=== PATIENT | female | born 1995 | race African-American/Black ===

== ENCOUNTER 2023-01-06 20:02 | Emergency (ER) | payer SELFPAY ==
[2023-01-06] MEDS ORDERED: Ketorolac Tromethamine 30 MG/ML VIAL ONE (20:29)
[2023-01-06] MEDS ORDERED: Cyclobenzaprine 10 MG TAB ONE (20:30)
== END 2023-01-06 21:20 | disposition home or self-care (01) ==
LOC: CSHERS 20:02
DX: M43.6 Torticollis (principal)
CPT/HCPCS: 96372; 99283; J1885

== ENCOUNTER 2023-03-01 19:02 | Emergency (ER) | payer SELFPAY ==
[2023-03-01] MEDS ORDERED: Ketorolac Tromethamine 30 MG/ML VIAL ONE (21:45)
== END 2023-03-01 22:09 | disposition home or self-care (01) ==
LOC: CSHERS 19:02
DX: J02.9 Acute pharyngitis, unspecified (principal)
CPT/HCPCS: 96372; 99283; J1885

== ENCOUNTER 2024-03-01 13:39 | Emergency (ER) | payer OTHER ==
[2024-03-01 16:08] LABS: Bilirubin Neg (Negative); Blood, Urine Negative (Negative); Clarity Clear (Clear); Glucose, Urine (Dipstick) Normal (Negative); Ketone, Urine Negative (Negative); Leukocyte Negative (Negative); Nitrite Negative (Negative); Protein, Urine (Dipstick) Negative (Neg-Trace); Specific Gravity, Urine 1.015 (1.005-1.030); Urobilinogen Normal mg/dL (Less than 2)
[2024-03-01 16:10] LABS: CAUTI Indications for Culture Pelvic or flank pain
[2024-03-01 16:16] LABS: #Basophils 0.04 10x3/uL (0.0-0.2); #Eosinophils 0.05 10x3/uL (0.0-0.5); #Neutrophils 6.47 10x3/uL (1.5-8.4); %Basophils 0.4 % (0.0-2.0); %Eosinophils 0.6 % (0.0-6.0); %Lymphocytes 19.5 % (18.0-47.0); %Monocytes 7.7 % (0.0-10.0); %Neutrophils 71.6 % (40.0-75.0); Hematocrit 42.7 % (34.9-44.5); Hemoglobin 14.2 g/dL (12.0-15.5); Mean Corpuscular HGB CONC 33.3 g/dL (32.0-36.0); Mean Corpuscular Hemoglobin 29.8 pg (27.0-33.0); Mean Corpuscular Volume 89.7 fL (81.6-98.3); Platelet Count 173 10x3/uL (150-450); RBC Distribution Width 13.2 % (11.5-14.5); Red Blood Cell (RBC) Count 4.76 10x6/uL (3.90-5.03)
[2024-03-01 16:21] LABS: Bacteria/HPF Rare-Few HPF (None Seen); RBC/HPF 0-3 HPF (0-3); WBC/HPF 0-3 HPF (0-3)
[2024-03-01 16:23] LABS: Urine Culture Reflex No No
[2024-03-01 16:29] LABS: ALT (SGPT) 22 U/L (8-55); AST (SGOT) 19 U/L (5-34); Albumin 4.5 g/dL (3.5-5.0); Alkaline Phosphatase 63 U/L (40-110); Anion Gap 14 mmol/L (10-20); BHCG - Serum Negative (NEGATIVE); BUN (Urea Nitrogen) 8 mg/dL (7.0-18.7); Bilirubin, Total 0.8 mg/dL (0.2-1.2); Calc. Creatinine Clearance 0 mL/min (70-130); Calcium 9.6 mg/dL (7.8-10.44); Carbon Dioxide 21 mmol/L (22-29); Chloride 108 mmol/L (98-107); Estimated GFR 100; Globulin 3.1 g/dL (2.4-3.5); Glucose 81 mg/dL (70-105); Lipase 25 U/L (8-78); Potassium 4.2 mmol/L (3.5-5.1); Pregs Control Background? CLEAR/WHITE (CLR/WHITE); Pregs Control Bar Appear? YES (CONTROL BAR); Protein, Total 7.6 g/dL (6.0-8.3); Sodium 139 mmol/L (136-145)
== END 2024-03-01 17:12 | disposition home or self-care (01) ==
LOC: CSHERS 13:39
DX: R10.11 Right upper quadrant pain (principal)
CPT/HCPCS: 36415; 76705; 80053; 81001; 83690; 84703; 85025

== ENCOUNTER 2024-03-22 14:15 | Emergency (ER) | payer OTHER ==
[2024-03-24 14:00] LABS: GC by PCR, Vaginal Swab Not Detected (NotDetected)
== END 2024-03-22 15:29 | disposition home or self-care (01) ==
LOC: CSHERS 14:15
DX: R10.2 Pelvic and perineal pain (principal)
CPT/HCPCS: 87480; 87510; 87591; 87660; 99283